=== PATIENT | female | born 1995 | race Caucasian/White ===

== ENCOUNTER 2025-01-21 06:30 | Inpatient (IN) ==
[2025-01-21] MEDS ORDERED: NUBAIN INJ 20 MG AMP IVP PRN (07:07)
[2025-01-21] MEDS ORDERED: ZOFRAN INJ 4 MG VIAL IVP PRN ×3 (07:07→18:29)
[2025-01-21] MEDS ORDERED: REGLAN INJ 10 MG VIAL IVP PRN ×3 (07:07→18:29)
[2025-01-21] MEDS ORDERED: PITOCIN IVP ONE (07:07)
[2025-01-21] MEDS: D5 1/2 NS 1,000 ML 1,000 ML IV SCH (07:10)
[2025-01-21 07:36] LABS: BASOPHILS # (AUTO) 0.1 X10^3/uL (0.0-0.1); BASOPHILS % (AUTO) 0.8 % (0.2-1.0); EOSINOPHILS # (AUTO) 0.1 x10^3/uL (0.0-0.2); EOSINOPHILS % (AUTO) 1.3 % (0.9-2.9); HEMATOCRIT 34.5 % (36.0-47.0); HEMOGLOBIN 11.9 g/dL (12.0-16.0); LYMPHOCYTES # (AUTO) 2.5 X10^3/uL (1.3-2.9); LYMPHOCYTES % (AUTO) 23.1 % (21.0-51.0); MEAN CORPUSCULAR HEMOGLOBIN 30.5 pg (27.0-34.0); MEAN CORPUSCULAR HGB CONC 34.4 g/dL (33.0-35.0); MEAN CORPUSCULAR VOLUME 88.6 fL (80.0-100.0); MONOCYTES # (AUTO) 0.8 x10^3/uL (0.3-0.8); MONOCYTES % (AUTO) 7.9 % (0.0-13.0); NEUTROPHILS # (AUTO) 7.2 x10^3/uL (2.2-4.8); NEUTROPHILS % (AUTO) 66.9 % (42.0-75.0); PLATELET COUNT 226 X10^3/uL (150.0-450.0); RED BLOOD COUNT 3.89 X10^6/uL (3.5-5.4); RED CELL DISTRIBUTION WIDTH 13.7 % (11.6-16.5); WHITE BLOOD COUNT 10.8 X10^3/uL (3.6-10.0)
[2025-01-21 07:41] LABS: INR 1.06 (0.8-1.3)
--- NOTE | 2025-01-21 07:41 | DR.OB ---
OB QUICK NOTE Assessment/Plan (1) Elective induction of labor planned: Assessment/Plan: L&D 01/21/25 at 7:15am S-No complaint. O-Afebrile,VSS YTW=151 with good LTV, +accel, no decel. CTX=none CVX=2cm/50%/-1/VTX AROM with clear fluid. IUPC and FSE placed. A-IUP at 39 1/7 weeks for induction PIH P-Begin pitocin induction F/U labs Anticipate (2) induced hypertension:
[2025-01-21 07:47] LABS: ALANINE AMINOTRANSFERASE 16 Units/L (12-78); ASPARTATE AMINO TRANSFERASE 18 Units/L (15-37); BLOOD UREA NITROGEN 9 mg/dL (7-18); CALCIUM 8.4 mg/dL (8.5-10.1); CHLORIDE 104 mmol/L (98-107); CREATININE 0.72 mg/dL (0.55-1.02); GLUCOSE 81 mg/dL (65-99); LACTATE DEHYDROGENASE 179 Units/L (81-234); POTASSIUM 3.8 mmol/L (3.5-5.1); SODIUM 138 mmol/L (136-145); URIC ACID 5.2 mg/dL (2.6-6.0); eGFR NON BLACK RACES > 60 (>60)
[2025-01-21 07:48] LABS: BILIRUBIN,URINE NEGATIVE (NEGATIVE); BLOOD/HEMOGLOBIN,URINE 2+ (NEGATIVE); GLUCOSE, URINE NEGATIVE (NEGATIVE); KETONES,URINE NEGATIVE (NEGATIVE); LEUKOCYTE ESTERASE ,URINE NEGATIVE (NEGATIVE); NITRITES,URINE NEGATIVE (NEGATIVE); PROTEIN,URINE 2+ (NEGATIVE); UROBILINOGEN,URINE NORMAL (NORMAL)
[2025-01-21 07:57] LABS: APPEARANCE,URINE SLIGHTLY HAZY (CLEAR); COLOR,URINE YELLOW (YELLOW)
[2025-01-21 07:58] LABS: BACTERIA,URINE 2+ /HPF (NEGATIVE); SQUAMOUS EPITHELIAL CELL,UR MANY /HPF (NEGATIVE)
[2025-01-21] MEDS: OXYTOCIN 20 UNIT/1,000 ML-NS 20 UNIT/1,000 ML PLAST..BAG IV PRN (08:10)
[2025-01-21] MEDS: NAROPIN EPIDURAL 0.2% 100 ML ONE (10:34)
[2025-01-21] MEDS: FENTANYL VIAL INJ 100 mcg ONE (10:34)
--- NOTE | 2025-01-21 12:35 | DR.OB ---
OB QUICK NOTE Assessment/Plan (1) Elective induction of labor planned: Assessment/Plan: L&D 01/21/25 at 12:30pm Pitocin=8mu/min. S-No complaint. s/p epidural. O-Afebrile,VSS QJM=011 with good LTV, +accel., occasional deep variables. Episode of prolonged decel for 8-9 min. earlier--resolved. CTX=q 1 1/2 to 3 min., about 45-55mmHg CVX=4cm/60%/-1/VTX A-IUP at 39 1/7 weeks for induction PIH P-Cont. pitocin induction Anticipate . (2) induced hypertension:
[2025-01-21] MEDS: LR 1,000 ML IV 1,000 ML IV ONE ×2 (12:49→16:17)
[2025-01-21] MEDS ORDERED: NS 1,000 ML IV 1,000 ML IV ONE (13:04)
[2025-01-21] MEDS: NS 1,000 ML IV 1,000 ML IV ONE (13:10)
[2025-01-21] MEDS: NS 1,000 ML IV 0 ML ONE (15:02)
[2025-01-21] MEDS: BICITRA 30 ML PO ONE (16:01)
[2025-01-21] MEDS: PEPCID 20 MG VIAL ONE (16:02)
[2025-01-21] MEDS: LIDOCAINE 2%-EPI 1:200,000 ONE ×2 (16:02→16:12)
[2025-01-21] MEDS: NS 100 ML IV 100 ML ONE (16:12)
[2025-01-21] MEDS: ANCEF VIAL 1 GRAM ONE (16:12)
[2025-01-21] MEDS: NOZIN NASAL SANITIZER TP ONE (16:15)
[2025-01-21] MEDS: PEPCID 20 MG VIAL IVP PRN (16:15)
[2025-01-21] MEDS: ZOFRAN INJ 4 MG VIAL IVP PRN (16:15)
--- NOTE | 2025-01-21 16:17 | DR.OB ---
OB QUICK NOTE Assessment/Plan (1) Elective induction of labor planned: Assessment/Plan: L&D 01/21/25 at 4:15pm Pitocin=20mu/min. S-No complaint. O-Afebrile,VSS] [id number] with good LTV, +accel, no decel. CTX=q 1 1/2 to 2 min., about 35-45mmHg CVX=4cm/60%/-1/VTX with some caput forming (no change in over 4 hours) A-IUP at 39 1/7 weeks in labor with failure to dilate P-To C/S (2) induced hypertension:
[2025-01-21] MEDS: LR 1,000 ML IV 900 ML IV PRN (16:20)
[2025-01-21] MEDS: ANCEF VIAL 1 GRAM IV PRN (16:35)
[2025-01-21] MEDS ORDERED: DANTRIUM IVP PRN (16:38)
[2025-01-21] MEDS ORDERED: DILAUDID INJ PRN ×2 (16:38→17:56)
[2025-01-21] MEDS ORDERED: PITOCIN IVP PRN (16:57)
[2025-01-21] MEDS: DILAUDID INJ ONE ×2 (16:59→17:54)
[2025-01-21] MEDS: DIPRIVAN VIAL 20 ML ONE (17:10)
[2025-01-21] MEDS: DIPRIVAN VIAL 150 ML IVP PRN (17:13)
[2025-01-21] MEDS: ZOFRAN INJ 4 MG VIAL ONE (17:14)
[2025-01-21] MEDS: EPHEDRINE SULFATE INJ ONE (17:14)
[2025-01-21] MEDS ORDERED: BENADRYL INJ 50 MG VIAL IVP PRN ×2 (18:06→18:29)
[2025-01-21] MEDS ORDERED: DILAUDID INJ IVP PRN (18:06)
[2025-01-21] MEDS ORDERED: PERCOCET TAB 5/325 MG PO PRN (18:29)
[2025-01-21] MEDS ORDERED: NARCAN INJ IVP PRN (18:29)
[2025-01-21] MEDS ORDERED: MYLICON TAB 80 MG CHEW PO PRN (18:29)
[2025-01-22] MEDS: TORADOL 30 MG VIAL IVP PRN (02:22)
[2025-01-22] MEDS: OXYTOCIN 20 UNIT/1,000 ML-NS 20 UNIT/1,000 ML PLAST..BAG IV SCH (04:17)
[2025-01-22 04:40] LABS: HEMATOCRIT 24.5 % (36.0-47.0); HEMOGLOBIN 8.6 g/dL (12.0-16.0)
[2025-01-22] MEDS ORDERED: ADACEL or BOOSTRIX TDaP VACCINE IM ONE (06:10)
[2025-01-22] MEDS: ADACEL or BOOSTRIX TDaP VACCINE IM ONE (06:14)
[2025-01-22] MEDS: PRENATAL PLUS PO SCH (09:06)
[2025-01-22] MEDS: COLACE CAP 100 MG PO SCH (09:07)
[2025-01-22] MEDS: BETADINE SOLN ONE (13:30)
[2025-01-22] MEDS: BACTROBAN TOPICAL OINT TOP SCH (14:38)
[2025-01-22] MEDS: PERCOCET TAB 5/325 MG PO PRN (19:23)
[2025-01-22] MEDS: MOTRIN TAB 800 MG PO PRN (22:02)
[2025-01-23] MEDS: FERROUS GLUCONATE PO SCH (04:54)
[2025-01-23] MEDS ORDERED: CELEXA PO SCH (09:00)
[2025-01-23 11:14] VITALS: BP 136/83; PULSE 96; RESP 18; TEMP 98.1; O2SAT 100
== END 2025-01-23 12:40 | disposition home or self-care (01) | DRG 788 ==
LOC: EDBD → LD 06:51 → MED/SURG 18:18
PROVIDERS: ADMIT Specialist; ATTEND Specialist
DX: Z3A.39 39 weeks gestation of pregnancy; O62.0 Primary inadequate contractions; Z37.0 Single live birth; O13.3 Gestational [pregnancy-induced] hypertension without significant proteinuria, third trimester